=== PATIENT | female | born 1940 | race Caucasian/White ===

== ENCOUNTER 2017-02-13 14:52 | Observation (INO) | payer MEDICARE ==
[~2017-02-13] VITALS: Ht 160 cm; Wt 74.0 kg
[2017-02-13 14:54] VITALS: BP 166/92; PULSE 75; RESP 18; O2SAT 96
--- NOTE | 2017-02-13 15:07 | ED.REPORT ---
HPI-Stroke / CVA Feb 13, 2017 ED Provider: Anshul Taylor MD A 76 year old female with a history of hypertension and hyperlipidemia is brought to the ED via EMS due to a possible stroke. Per the pt's speech became suddenly slurred just after 14:10 and she developed right-sided facial and arm weakness. The symptoms lasted for seven minutes then mostly resolved, though she did have mild difficulty speaking after that point. The pt also noticed a mild headache. Nursing Notes Stated Complaint: POSSIBLE STROKE Chief Complaint: Stroke Symptoms Nursing Notes Reviewed: Yes Allergies: Coded Allergies: acetaminophen (Verified Allergy, Severe, hallucinations, 02/13/17) oxycodone (Verified Allergy, Severe, hallucinations, 02/13/17) Scheduled Cholecalciferol (Vitamin D3) (Vitamin D3) 1,000 Unit Tab.chew 2,000 UNIT PO DAILY (Reported) Estradiol (Estradiol) 0.5 Mg Tablet 0.5 MG PO DAILY (Reported) Fish Oil/Borage/Flax/Om3,6,9#1 ([place] 3-6-9 1,200 mg Softgel) 1,200 Mg Capsule 1 ,200 MG PO DAILY (Reported) Gabapentin (Gabapentin) 300 Mg Capsule 300 MG PO HS (Reported) Hydrochlorothiazide (Hydrochlorothiazide) 12.5 Mg Tablet 12.5 MG PO DAILY ( Reported) Lactobacillus Acidophilus (Probiotic) 1 Each Capsule 1 EACH PO DAILY (Reported) Lisinopril (Lisinopril) 5 Mg Tablet 5 MG PO DAILY (Reported) Lovastatin (Lovastatin) 20 Mg Tablet 20 MG PO DAILYWD (Reported) Prednisone (PredniSONE) 10 Mg Tablet 10 MG PO DAILY (Reported) Scheduled PRN Acetaminophen (Acetaminophen) 325 Mg Tablet 500 MG PO Q6H PRN PRN For Pain ( Reported) Albuterol Sulfate (Ventolin HFA Inhaler) 200 Puff/18 Gm Inhaler 2 PUFF INH q4- 6h PRN PRN whee (Reported) General Time Seen by Provider: 15:02 Chief Complaint Slurred speech Hx Obtained From: Patient, EMS Arrived By: Ambulance Time last known well 14:10 Sudden in Onset?: Yes Symptom Duration: 1 - 15 minutes Progression Since Onset: Rapidly improving Recent Healthcare: No recent hospitalization, Recent doctor visit Similar Sx Previous: No Risk Factors Risk Notes: TPA considered no administered because of NIH score of 0 NIH Stroke Scale Level of Consciousness: Alert and responsive (0) Ask Month & Age: Both questions right (0) Open/Close Eyes/Hand Purchasing And Claims Supervisor: Performs both tasks (0) Horizontal EO Movements: None (0) Visual Patricio: No visual loss (0) Facial Palsy: Normal symmetry (0) Right Arm Motor Drift (10s): No drift 10 sec (0) Left Arm Motor Drift (10s): No drift 10 sec (0) Right Leg Motor Drift (5s): No drift 5 sec (0) Left Leg Motor Drift (5s): No drift 5 sec (0) Limb Ataxia FNF/Heel-Lauren: No ataxia (0) Sensation (Arms/Legs/Face): No sensory loss (0) Language Aphasia: No aphasia, normal (0) Dysarthria: No dysarthria, normal (0) Extinction/Inattention: No exctinct/inattent (0) NIHSS Score: 0 Time NIHSS Performed: 15:20 Date NIHSS Performed: Feb 13, 2017 Past Medical History Past Medical History hypertension hyperlipidemia osteoarthritis Past Surgical History none reported Smoking History Former Smoker (distant) Social History Other Social History: Good social support, Ambulatory Status Independent Review of Systems Respiratory: Denies: Non-productive cough, Shortness of breath Cardiovascular: Denies: Chest pain GI: Denies: Abdominal pain, Vomiting Musculoskeletal: Denies: Back pain Skin: Denies Rash Neurologic: Reports: Headache, Slurred speech, Weakness (right-sided) Complete sys rev & neg: except as marked. Physical Exam Initial Vital Signs Vital Signs (First) Date Time Temp Pulse Resp B/P Pulse Ox O2 Delivery O2 Flow Rate FiO2 02/13/17 14:54 75 18 166/92 96 Room Air Initial VS: Reviewed General/Constitutional: Awake, Alert Head / Eyes: Atraumatic, Normocephalic, PERRL, EOMI Neck: Atraumatic, Supple, Full range of motion Respiratory / Chest: Atraumatic, Breath sounds NL, Breath sounds = bilat, No respiratory distress Cardiovascular: Heart rate NL, Regular rhythm, Heart sounds NL Neurologic: Oriented X3, Speech NL, No motor deficits, No sensory deficits, CN II - XII intact ENT: Atraumatic, Airway patent, Mucous membranes moist Abdomen: Atraumatic, Soft, Non-tender Upper Extremity / MS: Atraumatic, Full range of motion Lower Extremity / Pelvis / MS: Atraumatic, Full range of motion Skin: Atraumatic, Color NL, No rash, Warm, Dry Psychiatric: Affect NL, Mood NL Back: Atraumatic, Full range of motion Interpretation & Diagnostics Lab Results Interpretation Result Diagram: 02/13/17 1539 02/13/17 1539 Test 02/13/17 15:09 02/13/17 15:35 02/13/17 15:39 Urine Color Straw (YELLOW) Urine Appearance Clear (CLEAR,HAZY) Urine pH 5.0 (5.0-8.0) Urine Specific [place] 1.010 (1.003-1.035) Urine Protein Negativemg/dL (NEG,TRACE) Urine Glucose (UA) Negativemg/dL (NEGATIVE) Urine Ketones Negativemg/dL (NEGATIVE) Urine Occult Blood Negative (NEGATIVE) Urine Nitrite Negative (NEGATIVE) Urine Bilirubin Negative (NEGATIVE) Urine Urobilinogen Normalmg/dL (NORMAL) Urine Leukocyte Esterase Negative (NEGATIVE) Urine RBC 0-2/hpf (0-2) Urine WBC 0-5/hpf (0-5) Urine Epithelial Cells Moderate/hpf (NONE-MOD) Urine Crystals None seen (NONE SEEN) Urine Bacteria None/hpf (NONE-FEW) Urine Hyaline Casts None/lpf (NONE) Urine Granular Casts None seen (NONE SEEN) Urine Waxy Casts None seen (NONE SEEN) Urine Red Blood Cell Casts None seen (NONE SEEN) Urine White Blood Cell Casts None seen (NONE SEEN) Urine Mucus None seen (None Seen) Urine Trichomonas None seen (NONE SEEN) Urine Yeast None (NONE SEEN) Urinalysis Comment None Urine Culture Reflexed Not indicated Hold Urine Received (Received) Hold Purple Top Tube Received (Received) Hold Blue Top Tube Received (Received) Hold [place] Top Tube Received (Received) Hold [place] Top Tube Received (Received) White Blood Count 14.2th/mm3 (3.8-10.1) Red Blood Count 4.29mil/mm3 (3.90-5.20) Hemoglobin 13.2g/dL (12.0-15.6) Hematocrit 39.2% (35.0-46.0) Mean Corpuscular Volume 91.4fL (81-100) Mean Corpuscular Hemoglobin 30.8pg (27.0-35.0) Mean Corpuscular Hemoglobin Concent 33.7% (32.0-37.0) Red Cell Distribution Width 13.3% (12.3-15.4) Platelet Count 265bil/L (150-400) Neutrophils (%) (Auto) 85.8% (40-74) Lymphocytes (%) (Auto) 11.2% (14-46) Monocytes (%) (Auto) 2.3% (4-12) Eosinophils (%) (Auto) 0.2% (0-5) Basophils (%) (Auto) 0.2% (0-3) Prothrombin Time 11.3sec (8.1-12.5) Prothromb Time International Ratio 1.05ratio Sodium Level 137mEq/L (134-144) Potassium Level 4.6mEq/L (3.5-5.2) Chloride Level 99mEq/L (97-108) Carbon Dioxide Level 22mmol/L (18-29) Blood Urea Nitrogen 32mg/dL (8-27) Creatinine 1.18mg/dL (0.57-1.00) Estimat Glomerular Filtration Rate 64mL/min (>59) Glucose Level 110mg/dL (60-99) Calcium Level 10.0mg/dL (8.5-10.1) Total Bilirubin 0.2mg/dL (0.0-1.2) Aspartate Amino Transf (AST/SGOT) 19U/L (0-50) Alanine Aminotransferase (ALT/SGPT) 16U/L (0-32) Alkaline Phosphatase 40U/L (25-165) Total Protein 7.0g/dL (6.4-8.4) Albumin 4.0g/dL (3.4-5.0) ECG Interpretation ECG Interpretation: normal sinus rhythm with a rate of 57 probable left atrial enlargement low voltage, precordial leads Time: 16:31 Interpreted by: ED physician CT Head Interpretation IMPRESSION: Normal appearing brain parenchyma, source of altered speech is not seen. Dictated by: Timbo Pleitez M.D. on 02/13/2017 at 15:30 Approved by: Timbo Pleitez M.D. on 02/13/2017 at 15:34 Interpretation / Wet Read by: Interpret - Radiologist Re-Eval/Medical Decision Source of Hx: Old records Re-Evaluation/Progress #1: Time of Eval: 15:28 Patient Status: Condition improved Re-Evaluation/Progress Note: Pt rechecked, who is comfortable. The diagnosis and plan for admission was discussed. The pt understands and agrees with the plan. All questions are addressed at this time. Re-Evaluation/Progress #2: Time of Eval: 16:03 Patient Status: Condition improved Re-Evaluation/Progress Note: Pt rechecked and further history is obtained. The plan for admission is further discussed. Consultation : Referral / Consult Name: Myrtle Calderon MD Consulted With: Hospitalist Call Returned at: 16:41 Field Operator: Agrees with eval, Agrees with plan, Accepts admit Note: Spoke with Dr. Calderon, hospitalist, regarding pt's case. Dr. Calderon agrees with the evaluation and agrees to admit the pt. Counseled Regarding: Diagnosis, Lab results, Need for admission Patient Discharge & Departure Impression: Primary Impression: Cerebrovascular accident CVA mechanism: unspecified Qualified Code: I63.9 - Cerebral infarction, unspecified Disposition: ADMITTED TO HOSPITAL Discharge Condition All VS Reviewed: Yes Condition: Stable Referrals: Radha Carney MD (PCP) Archie Shah DO Scribe Attestation Portions of this note were transcribed by Gabriele Melton. I, Dr. Taylor personally performed the history, physical exam and medical decision-making; I reviewed and confirmed the accuracy of the information in the transcribed note. copies to: Archie Shah DO; Radha Carney MD, Kirk H MD Feb 13, 2017 15:07 GABRIELE MELTON Feb 13, 2017 15:13
[2017-02-13 15:20] VITALS: BP 160/89; PULSE 88; RESP 19; O2SAT 94
--- NOTE | 2017-02-13 15:36 | DRSVH ---
PROCEDURE: CT BRAIN TPA INDICATIONS: Stroke symptoms, possible TPA administration anticipated. COMPARISON: None. FINDINGS: Source of slurred speech is not found. The brain parenchyma appears normal for age. No h emorrhage or mass identified. IMPRESSION: Normal appearing brain parenchyma, source of altered speech is not seen. Dictated by: Timbo Pleitez M.D. on 02/13/2017 at 15:30 Approved by: Timbo Pleitez M.D. on 02/13/2017 at 15:34
[2017-02-13 16:13] LABS: BASOPHILS % (AUTO) 0.2 % (0-3); EOSINOPHILS % (AUTO) 0.2 % (0-5); MONOCYTES % (AUTO) 2.3 % (4-12); Mean Corpuscular Hemoglobin 30.8 pg (27.0-35.0); Mean Corpuscular Volume 91.4 fL (81-100); NEUTROPHILS % (AUTO) 85.8 % (40-74); Platelet Count 265 bil/L (150-400)
[2017-02-13 16:17] LABS: APPEARANCE,URINE CLEAR (CLEAR,HAZY); COLOR,URINE STRAW (YELLOW); OCCULT BLOOD,URINE NEGATIVE (NEGATIVE); UROBILINOGEN,URINE NORMAL (NORMAL)
[2017-02-13 16:18] LABS: INR 1.05 ratio
--- NOTE | 2017-02-13 16:23 | NUR ---
Evaluation completed. Please go to "Notes" then click on "Assessments and Notes" (bottom left corner of screen). Then select appropriate discipline tab on top of screen.
[2017-02-13] MEDS ORDERED: CLOB15OI2 TOPICAL (16:58)
[2017-02-13] MEDS ORDERED: GABA-502 PO (16:58)
[2017-02-13] MEDS ORDERED: ESTR0.5T PO (16:58)
[2017-02-13] MEDS ORDERED: FISH12002 PO (16:59)
[2017-02-13] MEDS ORDERED: LISI-571 PO (16:59)
[2017-02-13] MEDS ORDERED: ALBU18HF INH (16:59)
[2017-02-13] MEDS ORDERED: LOVA20TA PO (16:59)
[2017-02-13] MEDS ORDERED: PRE10 PO (16:59)
[2017-02-13] MEDS ORDERED: HYDR12.55 PO (16:59)
[2017-02-13] MEDS ORDERED: CHOL10008 PO (16:59)
[2017-02-13] MEDS ORDERED: ACET325T51 PO (17:08)
[2017-02-13] MEDS ORDERED: LACT1CAP65 PO (17:08)
[2017-02-13] MEDS ORDERED: Alum-Mag Hydrox-Simeth 30 mL Suspension PO PRN ×2 (17:25→17:35)
[2017-02-13] MEDS ORDERED: Ondansetron 2 mg/mL 2 mL Inj IVPUSH PRN ×2 (17:25→17:35)
[2017-02-13] MEDS ORDERED: Polyethylene Glycol (PEG) 17 Gm Powder PO PRN (17:35)
[2017-02-13] MEDS ORDERED: Labetalol 5 mg/mL 4 mL Inj IVPUSH PRN (17:35)
--- NOTE | 2017-02-13 17:46 | PCM.HPMED ---
Subjective Date of Service Feb 13, 2017 Primary Provider: Admitting Physician: Myrtle Calderon MD Primary Care Physician: Archie Shah DO Attending Physician: Myrtle Calderon MD Admit Status: From the Emergency Department, 23-Hour Observation, Admit to [facility], Remote Telemetry Chief Complaint: Dysarthria and right face and arm weakness History of Present Illness: 76-year-old female whose history is significant for hyperlipidemia hypertension along with interstitial fibrosis presents with an episode which started this afternoon where she had right-sided facial and arm weakness along with dysarthria lasted for about 10 minutes and then started to improve and was totally gone in about 1520 minutes. Patient has no prior history of strokes or similar symptoms. Her evaluation in the emergency room included CT of head without contrast which reveals normal-appearing brain parenchyma. The patient does not take aspirin. Patient has been on prednisone for about the past year and recently will be stable on 10 mg by mouth daily. This was ordered by her railroad signal technician Adriano Holm for interstitial fibrosis. Patient does not want to proceed with further evaluation and biopsy to confirm that diagnosis. But she does respond to prednisone. She does not require home oxygen. Review of Systems: All other review systems are reviewed and are negative except for as in history of present illness. Allergies Coded Allergies: acetaminophen (Verified Allergy, Severe, hallucinations, 02/13/17) oxycodone (Verified Allergy, Severe, hallucinations, 02/13/17) Home Medications Scheduled Cholecalciferol (Vitamin D3) (Vitamin D3) 1,000 Unit Tab.chew 2,000 UNIT PO DAILY (Reported) Estradiol (Estradiol) 0.5 Mg Tablet 0.5 MG PO DAILY (Reported) Fish Oil/Borage/Flax/Om3,6,9#1 ([place] 3-6-9 1,200 mg Softgel) 1,200 Mg Capsule 1 ,200 MG PO DAILY (Reported) Gabapentin (Gabapentin) 300 Mg Capsule 300 MG PO HS (Reported) Hydrochlorothiazide (Hydrochlorothiazide) 12.5 Mg Tablet 12.5 MG PO DAILY ( Reported) Lactobacillus Acidophilus (Probiotic) 1 Each Capsule 1 EACH PO DAILY (Reported) Lisinopril (Lisinopril) 5 Mg Tablet 5 MG PO DAILY (Reported) Lovastatin (Lovastatin) 20 Mg Tablet 20 MG PO DAILYWD (Reported) Prednisone (PredniSONE) 10 Mg Tablet 10 MG PO DAILY (Reported) Scheduled PRN Acetaminophen (Acetaminophen) 325 Mg Tablet 500 MG PO Q6H PRN PRN For Pain ( Reported) Albuterol Sulfate (Ventolin HFA Inhaler) 200 Puff/18 Gm Inhaler 2 PUFF INH q4- 6h PRN PRN whee (Reported) PMH Past Medical History Past Medical History hypertension Pulmonary interstitial fibrosis hyperlipidemia osteoarthritis Past Surgical History none reported Family History Father with history of HI age 42 Mother with a history of CVA age 80 Social History Smoking Status: Former Smoker (distant) Living Arrangement: with Family Exam Vital Signs Vital Sign - Last Date Time Temp Pulse Resp B/P Pulse Ox O2 Delivery O2 Flow Rate FiO2 02/13/17 15:20 88 19 160/89 94 Room Air Exam Constitutional: Elderly female in no acute distress Head: Normocephalic atraumatic Neck: Crest posterior further bruits Mouth: No lesions Chest: Some scant crackles at her bases bilaterally Cor: Regular rate and rhythm S1-S2 without murmur Abdomen: Soft nontender bowel sounds present Extremities: No pedal edema Psych: Mood and affect appropriate Skin: No rashes Extremities: No pedal edema Neuro: Alert and oriented 3, motor strength is intact bilaterally Lab and Diagnostics Labs Laboratory Tests 72 Hours Test 02/13/17 15:09 02/13/17 15:35 02/13/17 15:39 Urine Color Straw (YELLOW) Urine Appearance Clear (CLEAR,HAZY) Urine pH 5.0 (5.0-8.0) Urine Specific [place] 1.010 (1.003-1.035) Urine Protein Negativemg/dL (NEG,TRACE) Urine Glucose (UA) Negativemg/dL (NEGATIVE) Urine Ketones Negativemg/dL (NEGATIVE) Urine Occult Blood Negative (NEGATIVE) Urine Nitrite Negative (NEGATIVE) Urine Bilirubin Negative (NEGATIVE) Urine Urobilinogen Normalmg/dL (NORMAL) Urine Leukocyte Esterase Negative (NEGATIVE) Urine RBC 0-2/hpf (0-2) Urine WBC 0-5/hpf (0-5) Urine Epithelial Cells Moderate/hpf (NONE-MOD) Urine Crystals None seen (NONE SEEN) Urine Bacteria None/hpf (NONE-FEW) Urine Hyaline Casts None/lpf (NONE) Urine Granular Casts None seen (NONE SEEN) Urine Waxy Casts None seen (NONE SEEN) Urine Red Blood Cell Casts None seen (NONE SEEN) Urine White Blood Cell Casts None seen (NONE SEEN) Urine Mucus None seen (None Seen) Urine Trichomonas None seen (NONE SEEN) Urine Yeast None (NONE SEEN) Urinalysis Comment None Urine Culture Reflexed Not indicated Hold Urine Received (Received) Hold Purple Top Tube Received (Received) Hold Blue Top Tube Received (Received) Hold [place] Top Tube Received (Received) Hold Sandra Top Tube Received (Received) White Blood Count 14.2th/mm3 (3.8-10.1) Red Blood Count 4.29mil/mm3 (3.90-5.20) Hemoglobin 13.2g/dL (12.0-15.6) Hematocrit 39.2% (35.0-46.0) Mean Corpuscular Volume 91.4fL (81-100) Mean Corpuscular Hemoglobin 30.8pg (27.0-35.0) Mean Corpuscular Hemoglobin Concent 33.7% (32.0-37.0) Red Cell Distribution Width 13.3% (12.3-15.4) Platelet Count 265bil/L (150-400) Neutrophils (%) (Auto) 85.8% (40-74) Lymphocytes (%) (Auto) 11.2% (14-46) Monocytes (%) (Auto) 2.3% (4-12) Eosinophils (%) (Auto) 0.2% (0-5) Basophils (%) (Auto) 0.2% (0-3) Prothrombin Time 11.3sec (8.1-12.5) Prothromb Time International Ratio 1.05ratio Sodium Level 137mEq/L (134-144) Potassium Level 4.6mEq/L (3.5-5.2) Chloride Level 99mEq/L (97-108) Carbon Dioxide Level 22mmol/L (18-29) Blood Urea Nitrogen 32mg/dL (8-27) Creatinine 1.18mg/dL (0.57-1.00) Estimat Glomerular Filtration Rate 64mL/min (>59) Glucose Level 110mg/dL (60-99) Calcium Level 10.0mg/dL (8.5-10.1) Total Bilirubin 0.2mg/dL (0.0-1.2) Aspartate Amino Transf (AST/SGOT) 19U/L (0-50) Alanine Aminotransferase (ALT/SGPT) 16U/L (0-32) Alkaline Phosphatase 40U/L (25-165) Total Protein 7.0g/dL (6.4-8.4) Albumin 4.0g/dL (3.4-5.0) Result Diagram: 02/13/17 1539 02/13/17 1539 X-Rays, CTs and MRIs PROCEDURE: CT BRAIN TPA INDICATIONS: Stroke symptoms, possible TPA administration anticipated. COMPARISON: None. FINDINGS: Source of slurred speech is not found. The brain parenchyma appears normal for age. No hemorrhage or mass identified. IMPRESSION: Normal appearing brain parenchyma, source of altered speech is not seen. Dictated by: Timbo Pleitez M.D. on 02/13/2017 at 15:30 Approved by: Timbo Pleitez M.D. on 02/13/2017 at 15:34 12-lead ECG Cannot locate at the time of this dictation Assessment & Plan #TIA with dysarthria and right facial and arm weakness, acute, present on admission -Check MR brain stroke protocol -CTA of head and neck stroke protocol -Echocardiogram -Initiate ASA 324 mg by mouth daily -Placed on telemetry #Hypertension, chronic, present on admission -Continue her home medication regimen -Monitor blood pressures #Hyperlipidemia, chronic, present on admission -Continue her statin therapy -Check fasting lipid panel in a.m. #Pulmonary interstitial fibrosis, chronic, present on admission -Continue with the prednisone 10 mg by mouth daily #DVT prophylaxis -Subcutaneous Lovenox prophylactic #CODE STATUS -Patient is full code Pain Evaluation: Adequate Pain Control VTE Prophylaxis: Sub-Q Enoxaparin, SCDs Resuscitation Status: CPR: Attempt Resuscitation Time spent 60 minutes copies to: Archie Shah Cheryl A MD Feb 13, 2017 17:46
[2017-02-13 18:14] VITALS: BP 145/70; PULSE 60; RESP 16; O2SAT 94
[2017-02-13 18:20] VITALS: PULSE 62
--- NOTE | 2017-02-13 18:42 | NUR ---
Admit to [facility] Patient arrived to 3018 around 1750, vitals/ht/weight taken, oriented to room. Telemetry placed, SR 60's. paged to see about ordering a diet, diet ordered. O x 3, patient appears to have a slight delay w/ response or thought process, spouse currently at the bedside. Admit not completed, patient stated she'd like to eat dinner before admit process d/t not eating since breakfast. Plan to pass on to NOC RN.
[2017-02-14 00:09] VITALS: BP 135/73; PULSE 70; RESP 16; O2SAT 92
[2017-02-14 05:30] VITALS: BP 124/68; PULSE 64; RESP 16; O2SAT 92
[2017-02-14 06:31] VITALS: PULSE 64
--- NOTE | 2017-02-14 06:31 | NUR ---
Admit Arrived on previous shift. Admit completed with at bedside. Ambulatory in room without any noted motor deficits. Speech clear and no noted swallowing difficulties noted. Neuro checks WNL all shift. IV SL. Tele SR without CP or discomfort. RA without SOB. Denies issues with bowel or bladder. Medications taken home with . Personal belongings at bedside per patient request. Oriented to call light use and using for needs.
--- NOTE | 2017-02-14 09:05 | DRSVH ---
PROCEDURE: CT ANGIO HEAD AND NECK (P) INDICATIONS: tia TECHNIQUE: Pre-contrast 4.5 mm thick sections acquired from the foramen magnum to the vertex. After the adminis tration of intravenous contrast, 1 mm thick sections acquired from the aortic arch through the [place] of [place]. Post-contrast 4.5 mm thick sections then re-acquired from the foramen magnum to the vert ex. 3-dimensional [id number] (MIP) and/or volume rendering reformats were acquired of the central intracranial vasculature and neck separately. For radiation dose reduction, the foll owing was used: automated exposure control, adjustment of mA and/or kV according to patient size. COMPARISON: [facility], CT, CT BRAIN TPA, 02/13/2017, 15:20. FINDINGS: Image quality: Good. BRAIN: CSF spaces: Ventricles are normal in size and shape. Basal cisterns are patent. No extra-axial flu id collections. Brain: No midline shift. No intracranial bleeds or masses. [place]-white matter interface appears int act. Minimal atrophic change as CT scan of 02/13/17. Skull and face: Calvarium and facial bones appear intact, without suspicious lesions. Orbits appear normal. Sinuses: Sinuses and mastoids are clear. HEAD CT ANGIOGRAPHY: Anterior circulation: Intracranial internal carotid arteries are not reduced greater than 50% at any portion in size and flow. The flow within the paired anterior cerebral arteries is normal and symme tric. The flow within the middle cerebral arteries is normal and symmetric. The anterior communicat ing artery is seen. No aneurysms are seen. Posterior circulation: Visualized portions of the vertebral arteries demonstrate normal caliber, and join to form a normal appearing basilar artery. Flow within the posterior cerebral arteries is norm al and symmetric. No aneurysms are seen. NECK CT ANGIOGRAPHY: Carotid system: The great vessels demonstrate a conventional anatomy, 3 vessels arising from the arc h. The origins of the common carotid arteries appear patent. There is minimal plaque in present. The common carotid arteries demonstrate normal caliber and courses. The bifurcation regions are both wi khang patent. There is less than 50% diameter stenosis of the internal carotid artery. The internal c arotid arteries demonstrate normal calibers and courses. Posterior circulation: The origins of the vertebral arteries both appear patent. The left is widely patent the right suspected to have greater than 50% diameter stenosis. The more superior extracranial portions of both vertebral arteries also demonstrate normal courses and calibers. They join to form a normal appearing basilar artery. Soft tissues: Visualized neck soft tissues demonstrate no suspicious abnormalities. Bones: No suspicious bony lesions. Visualized cervical spine appears normally aligned. IMPRESSION: 1. No change in the CT scan intracranially is seen. No evidence for acute infarct or blood. Mild atro phic change is present. 2. No intracranial vascular abnormality is seen and certainly no stenosis greater than 50% is present . There is atherosclerotic plaquing at the base of the skull of both internal Carotid artery segment on the right approaches a 50% narrowing. 3. The arch and great vessels show atherosclerotic plaquing. The only stenosis thought to be greater than 50% is at the origin of the right vertebral artery. The left is widely patent and a slightly gre ater in size vessel in the right vertebral. Dictated by: Freedom German M.D. on 02/14/2017 at 8:51 Approved by: Freedom German M.D. on 02/14/2017 at 9:02
[2017-02-14 10:16] VITALS: BP 116/70; PULSE 53; RESP 18; O2SAT 93
[2017-02-14 10:49] VITALS: PULSE 61
[2017-02-14 14:19] VITALS: BP 124/70; PULSE 61; RESP 18; O2SAT 94
--- NOTE | 2017-02-14 14:27 | NUR ---
Awaiting MRI results to determine need for further cognitive-communication evaluation. WAREHOUSE SHIPPING SUPERVISOR spoke with RN, who reported pt. is at baseline. WAREHOUSE SHIPPING SUPERVISOR to follow as appropriate.
--- NOTE | 2017-02-14 15:03 | DRSVH ---
[facility] [address] [place] [address] Echocardiogram Report Name: BONNIE ESCOBEDO JStudy Date : 02/14/2017 Height: 63 in Hospital Exam Location: [facility] Weight: 163 lb Gender: Female BSA: 1.8 m2 : 1940 Age: 76 yrs BP: 124/68 mmHg Reason For Study: TIA Ordering Physician: HOSPITALIST [facility] Performed By: Carlotta Flores Referring Physician[facility] Interpretation Summary The left ventricle is normal in size. The ejection fraction is estimated to be 55-60%. There is no LV thrombus. The right ventricle is normal in size and function. There is moderate tricuspid regurgitation. Compared to the prior echo exam, there has been an increase in TR severity. The right ventricular systolic pressure is estimated at 30 mmHg assuming a right atrial pressure of 3 mm Hg. Procedure: A two-dimensional transthoracic echocardiogram with color flow and Doppler was performed. The study quality was technically adequate. Comparison is made with the echocardiogram of 03/27/2016. The patient was in normal sinus rhythm during the exam. Left Ventricle: The left ventricle is normal in size. Left ventricular wall thickness is mild-moderately increased. Proximal septal thickening is noted. There is no echo evidence for significant left ventricular outflow tract obstruction. There is no thrombus. The ejection fraction is estimated to be 55-60%. There are no focal wall motion abnormalities. Assessment of diastolic parameters indicates a relaxation abnormality of the left ventricle, consistent with normal filling pressures. Right Ventricle: The right ventricle is normal in size and function. Atria: The left atrium is mildly dilated. The left atrium has remained unchanged in size since the prior echo exam. The right atrium is mildly dilated. The right atrium has remained unchanged in size since the prior echo exam. The interatrial septum is intact with no evidence for an atrial septal defect. Previously noted patent foramen ovale was not visualized on today's echocardiogram. Mitral Valve: The mitral valve leaflets appear mildly thickened, but open well. There is mild mitral annular calcification. There is mild mitral regurgitation. Compared to the prior echo study, there has been a decrease in the severity of mitral regurgitation. Aortic Valve: The aortic valve is trileaflet. The aortic valve opens well. The aortic valve is slightly calcified. There is no aortic valve stenosis. No aortic regurgitation is present. Tricuspid Valve: The tricuspid valve leaflets are thickened and/or calcified, but open well. The tricuspid valve is not well visualized. There is moderate tricuspid regurgitation. The right ventricular systolic pressure is estimated at 30 mmHg assuming a right atrial pressure of 3 mm Hg. Compared to the prior echo exam, there has been an increase in TR severity. Compared to the prior echo exam, there has been no change in the severity of pulmonary hypertension. Pulmonic Valve: The pulmonic valve is not well seen, but is grossly normal. There is trace pulmonic regurgitation. Great Vessels: The aortic root is normal size. The ascending aorta is normal in size. The IVC is of normal diameter and collapses greater than 50% with a sniff. This suggests a low right atrial pressure of 3 mm Hg. Pericardium/ Pleura There is no pericardial effusion. There is an anterior echo-free space consistent with a fat pad. There has been no significant change since the previous study. MMode/2D Measurements & Calculations LVIDd: 4.3 cm RA long axis LVOT diam LVIDs: 3.1 cm LA A2 area: 18.6 cm FS: 26.2 % LA A4 area: 19.6 cm RA area Ao root diam IVSd: 1.4 cm LA length (vol): 4.4 cm LVPWd: 1.1 cm LA vol: 70.2 ml : 20.3 cm asc Aorta LA vol index RA vol: 65.7 mlDiam: 3.6 cm RA : 37.0 mm2 IVC diam: 1.4 cm LV padilla. diameter/BSA LV sys. diameter/BSA TAPSE: 2.4 cm (cm/m^2): 2.4 (cm/m^2): 1.8 Doppler Measurements & Calculations Ao V2 max MV E max shashi MV E/A: 0.72 TR max shashi : 113.0 cm/sec : 74.6 cm/sec Med Peak E' Shashi : 258.0 cm/sec Ao max PG MV A max shashi TR max P.6 mmHg : 5.1 mmHg : 103.4 cm/sec E/E' med: 12.4 Ao mean PG Lat Peak E' Shashi LVOT Max Shashi E/E' lat: 11.0 : 79.1 cm/sec E/e' average ANNIKA(I,D): 2.4 cm sev ratio MV dec time Ao V2 mean LV V1 max PG ANNIKA indexed to BSA : 0.20 sec : 81.4 cm/sec (cm^2/m^2): 1.3 Ao V2 VTI: 27.6 cmLV V1 VTI ANNIKA(V,D): 2.4 cm2 : 19.5 cm Reading Physician:OBIE
--- NOTE | 2017-02-14 16:15 | PCM.DIMED ---
Discharge Instructions Date of Service Feb 14, 2017 Dates of Hospitalization Feb 13, 2017 at 17:33 Discharge Diagnosis Discharge Diagnosis TIA with dysarthria ,right facial droop Diet Discharge Diet: Heart Healthy Activity Discharge Activity: No restrictions Call your provider Call your provider for: Fever or Chills, Shortness of breath, Bleeding, Chest pain, Vomitting, Excessive diarrhea, Weakness (unilateral) Patient Instructions Follow-up Provider: Archie Shah DO Follow-up with PCP in: Other (5-7 days,sooner if problems.) Myrtle Calderon MD Feb 14, 2017 16:15
[2017-02-14] MEDS ORDERED: ASPI-973 PO (16:17)
--- NOTE | 2017-02-14 16:28 | PCM.DC.MED ---
Discharge Summary Date of Service Feb 14, 2017 Dates of Hospitalization Date of Hospital Admission Feb 13, 2017 at 17:33 Date of Discharge: Feb 14, 2017 Providers: Admitting Physician: Myrtle Calderon MD Primary Care Physician: Archie Shah DO Attending Physician: Myrtle Calderon MD Diagnosis at Time of Discharge Diagnosis at Time of Discharge TIA with dysarthria ,right facial droop Procedures XRay, CTs & MRIs PROCEDURE: CT BRAIN TPA INDICATIONS: Stroke symptoms, possible TPA administration anticipated. COMPARISON: None. FINDINGS: Source of slurred speech is not found. The brain parenchyma appears normal for age. No hemorrhage or mass identified. IMPRESSION: Normal appearing brain parenchyma, source of altered speech is not seen. Dictated by: Timbo Pleitez M.D. on 02/13/2017 at 15:30 Approved by: Timbo Pleitez M.D. on 02/13/2017 at 15:34 PROCEDURE: CT ANGIO HEAD AND NECK (P) INDICATIONS: tia TECHNIQUE: Pre-contrast 4.5 mm thick sections acquired from the foramen magnum to the vertex. After the administration of intravenous contrast, 1 mm thick sections acquired from the aortic arch through the [place]. Post-contrast 4.5 mm thick sections then re-acquired from the foramen magnum to the vertex. 3- dimensional ypjpkko-sgbjhxxgn-wyuxqrxfvc (MIP) and/or volume rendering reformats were acquired of the central intracranial vasculature and neck separately. For radiation dose reduction, the following was used: automated exposure control, adjustment of mA and/or kV according to patient size. COMPARISON: [facility], CT, CT BRAIN TPA, 02/13/2017, 15:20. FINDINGS: Image quality: Good. BRAIN: CSF spaces: Ventricles are normal in size and shape. Basal cisterns are patent. No extra-axial fluid collections. Brain: No midline shift. No intracranial bleeds or masses. Argueta-white matter interface appears intact. Minimal atrophic change as CT scan of 02/13/17. Skull and face: Calvarium and facial bones appear intact, without suspicious lesions. Orbits appear normal. Sinuses: Sinuses and mastoids are clear. HEAD CT ANGIOGRAPHY: Anterior circulation: Intracranial internal carotid arteries are not reduced greater than 50% at any portion in size and flow. The flow within the paired anterior cerebral arteries is normal and symmetric. The flow within the middle cerebral arteries is normal and symmetric. The anterior communicating artery is seen. No aneurysms are seen. Posterior circulation: Visualized portions of the vertebral arteries demonstrate normal caliber, and join to form a normal appearing basilar artery. Flow within the posterior cerebral arteries is normal and symmetric. No aneurysms are seen. NECK CT ANGIOGRAPHY: Carotid system: The great vessels demonstrate a conventional anatomy, 3 vessels arising from the arch. The origins of the common carotid arteries appear patent. There is minimal plaque in present. The common carotid arteries demonstrate normal caliber and courses. The bifurcation regions are both widely patent. There is less than 50% diameter stenosis of the internal carotid artery. The internal carotid arteries demonstrate normal calibers and courses. Posterior circulation: The origins of the vertebral arteries both appear patent. The left is widely patent the right suspected to have greater than 50% diameter stenosis. The more superior extracranial portions of both vertebral arteries also demonstrate normal courses and calibers. They join to form a normal appearing basilar artery. Soft tissues: Visualized neck soft tissues demonstrate no suspicious abnormalities. Bones: No suspicious bony lesions. Visualized cervical spine appears normally aligned. IMPRESSION: 1. No change in the CT scan intracranially is seen. No evidence for acute infarct or blood. Mild atrophic change is present. 2. No intracranial vascular abnormality is seen and certainly no stenosis greater than 50% is present. There is atherosclerotic plaquing at the base of the skull of both internal Carotid artery segment on the right approaches a 50% narrowing. 3. The arch and great vessels show atherosclerotic plaquing. The only stenosis thought to be greater than 50% is at the origin of the right vertebral artery. The left is widely patent and a slightly greater in size vessel in the right vertebral. Dictated by: Freedom German M.D. on 02/14/2017 at 8:51 Approved by: Freedom German M.D. on 02/14/2017 at 9:02 MRI of brain without contrast reveals small right posterior frontal ischemic subacute infarct. No mass effect or blood associated. This location does not fit with the clinical symptoms of dysarthria and right facial paralysis. ECG 12 Lead NSR Cardiac Echo Impression Echocardiogram Report Name: BONNIE ESCOBEDO JStudy Date : 02/14/2017 Height: 63 in Hospital Exam Location: [facility] Weight: 163 lb Gender: Female BSA: 1.8 m2 : 1940 Age: 76 yrs BP: 124/68 mmHg Reason For Study: TIA Ordering Physician: HOSPITALIST [facility] Performed By: Carlotta Flores Referring Physician: Baldomero Foy Interpretation Summary The left ventricle is normal in size. The ejection fraction is estimated to be 55-60%. There is no LV thrombus. The right ventricle is normal in size and function. There is moderate tricuspid regurgitation. Compared to the prior echo exam, there has been an increase in TR severity. The right ventricular systolic pressure is estimated at 30 mmHg assuming a right atrial pressure of 3 mm Hg. Brief History 76-year-old female whose history is significant for hyperlipidemia hypertension along with interstitial fibrosis presents with an episode which started this afternoon where she had right-sided facial and arm weakness along with dysarthria lasted for about 10 minutes and then started to improve and was totally gone in about 1520 minutes. Patient has no prior history of strokes or similar symptoms. Her evaluation in the emergency room included CT of head without contrast which reveals normal-appearing brain parenchyma. The patient does not take aspirin. Patient has been on prednisone for about the past year and recently will be stable on 10 mg by mouth daily. This was ordered by her fan mail editor Adriano Holm for interstitial fibrosis. Patient does not want to proceed with further evaluation and biopsy to confirm that diagnosis. But she does respond to prednisone. She does not require home oxygen. Hospital Course #TIA with dysarthria and right facial and arm weakness, acute, present on admission -Check MR brain stroke protocol as reported above -CTA of head and neck stroke protocol as reported above -Echocardiogram as reported above -Initiate ASA 324 mg by mouth daily and will be discharged on ASA 81 mg by mouth daily -Placed on telemetry with no abnormalities seen #Hypertension, chronic, present on admission -Continue her home medication regimen -Monitor blood pressures #Hyperlipidemia, chronic, present on admission -Continue her statin therapy -Check fasting lipid panel in a.m. #Pulmonary interstitial fibrosis, chronic, present on admission -Continue with the prednisone 10 mg by mouth daily #DVT prophylaxis -Subcutaneous Lovenox prophylactic #CODE STATUS -Patient is full code Exam Vital Signs (Last) Date Time Temp Pulse Resp B/P Pulse Ox O2 Delivery O2 Flow Rate FiO2 02/14/17 14:19 36.7 61 18 124/70 94 Room Air Exam Constitutional: Elderly female in no acute distress Head: Normocephalic atraumatic Chest: Clear to auscultation Cor: Regular rate and rhythm S1-S2 without murmur Abdomen: Soft nontender bowel sounds present Extremities: No pedal edema Psych: Mood and affect are appropriate Skin: No rashes Neuro: Alert and oriented 3, motor strength is intact bilaterally no other focal defects noted Test 02/13/17 15:09 02/13/17 15:35 02/13/17 15:39 02/14/17 06:05 Urine Color Straw (YELLOW) Urine Appearance Clear (CLEAR,HAZY) Urine pH 5.0 (5.0-8.0) Urine Specific [place] 1.010 (1.003-1.035) Urine Protein Negativemg/dL (NEG,TRACE) Urine Glucose (UA) Negativemg/dL (NEGATIVE) Urine Ketones Negativemg/dL (NEGATIVE) Urine Occult Blood Negative (NEGATIVE) Urine Nitrite Negative (NEGATIVE) Urine Bilirubin Negative (NEGATIVE) Urine Urobilinogen Normalmg/dL (NORMAL) Urine Leukocyte Esterase Negative (NEGATIVE) Urine RBC 0-2/hpf (0-2) Urine WBC 0-5/hpf (0-5) Urine Epithelial Cells Moderate/hpf (NONE-MOD) Urine Crystals None seen (NONE SEEN) Urine Bacteria None/hpf (NONE-FEW) Urine Hyaline Casts None/lpf (NONE) Urine Granular Casts None seen (NONE SEEN) Urine Waxy Casts None seen (NONE SEEN) Urine Red Blood Cell Casts None seen (NONE SEEN) Urine White Blood Cell Casts None seen (NONE SEEN) Urine Mucus None seen (None Seen) Urine Trichomonas None seen (NONE SEEN) Urine Yeast None (NONE SEEN) Urinalysis Comment None Urine Culture Reflexed Not indicated Hold Urine Received (Received) Hold Purple Top Tube Received (Received) Hold Blue Top Tube Received (Received) Hold [place] Top Tube Received (Received) Hold Sandra Top Tube Received (Received) White Blood Count 14.2th/mm3 (3.8-10.1) Red Blood Count 4.29mil/mm3 (3.90-5.20) Hemoglobin 13.2g/dL (12.0-15.6) Hematocrit 39.2% (35.0-46.0) Mean Corpuscular Volume 91.4fL (81-100) Mean Corpuscular Hemoglobin 30.8pg (27.0-35.0) Mean Corpuscular Hemoglobin Concent 33.7% (32.0-37.0) Red Cell Distribution Width 13.3% (12.3-15.4) Platelet Count 265bil/L (150-400) Neutrophils (%) (Auto) 85.8% (40-74) Lymphocytes (%) (Auto) 11.2% (14-46) Monocytes (%) (Auto) 2.3% (4-12) Eosinophils (%) (Auto) 0.2% (0-5) Basophils (%) (Auto) 0.2% (0-3) Prothrombin Time 11.3sec (8.1-12.5) Prothromb Time International Ratio 1.05ratio Sodium Level 137mEq/L (134-144) Potassium Level 4.6mEq/L (3.5-5.2) Chloride Level 99mEq/L (97-108) Carbon Dioxide Level 22mmol/L (18-29) Blood Urea Nitrogen 32mg/dL (8-27) Creatinine 1.18mg/dL (0.57-1.00) Estimat Glomerular Filtration Rate 64mL/min (>59) Glucose Level 110mg/dL (60-99) Calcium Level 10.0mg/dL (8.5-10.1) Total Bilirubin 0.2mg/dL (0.0-1.2) Aspartate Amino Transf (AST/SGOT) 19U/L (0-50) Alanine Aminotransferase (ALT/SGPT) 16U/L (0-32) Alkaline Phosphatase 40U/L (25-165) Total Protein 7.0g/dL (6.4-8.4) Albumin 4.0g/dL (3.4-5.0) Triglycerides Level 119mg/dL (0-149) Cholesterol Level 174mg/dL (100-199) LDL Cholesterol, Calculated 68.200mg/dL (0-99) VLDL Cholesterol 23.800mg/dL HDL Cholesterol 82mg/dL (>39) Cholesterol/HDL Ratio 2.12 (0.0-4.4) Discharge Medications Discharge Medications Aspirin (Aspirin) 81 Mg Tablet 81 MG PO DAILY Prescribed by: MYRTLE CALDERON MD Cholecalciferol (Vitamin D3) (Vitamin D3) 1,000 Unit Tab.chew 2,000 UNIT PO DAILY (Reported) Estradiol (Estradiol) 0.5 Mg Tablet 0.5 MG PO DAILY (Reported) Fish Oil/Borage/Flax/Om3,6,9#1 ([place]ard 3-6-9 1,200 mg Softgel) 1,200 Mg Capsule 1 ,200 MG PO DAILY (Reported) Gabapentin (Gabapentin) 300 Mg Capsule 300 MG PO HS (Reported) Hydrochlorothiazide (Hydrochlorothiazide) 12.5 Mg Tablet 12.5 MG PO DAILY ( Reported) Lactobacillus Acidophilus (Probiotic) 1 Each Capsule 1 EACH PO DAILY (Reported) Lisinopril (Lisinopril) 5 Mg Tablet 5 MG PO DAILY (Reported) Lovastatin (Lovastatin) 20 Mg Tablet 20 MG PO DAILYWD (Reported) Prednisone (PredniSONE) 10 Mg Tablet 10 MG PO DAILY (Reported) As needed Acetaminophen (Acetaminophen) 325 Mg Tablet 500 MG PO Q6H PRN PRN For Pain ( Reported) Albuterol Sulfate (Ventolin HFA Inhaler) 200 Puff/18 Gm Inhaler 2 PUFF INH q4- 6h PRN PRN whee (Reported) Followup Plan Disposition: Home Discharge Diet: Heart Healthy Discharge Activity: No restrictions Follow-up Provider: Archie Shah DO Follow-up with PCP in: Other (5-7 days,sooner if problems.) Time spent Greater than 30 minutes was spent in preparation of discharge with greater than 50% of that time dedicated to patient counseling and coordination of care. copies to: Archie Shah Cheryl A MD Feb 14, 2017 16:28
--- NOTE | 2017-02-14 16:47 | NUR ---
Discharge Note Patient discharged, spouse here to transport home. IV catheter x 1 & telemetry box removed. All items gathered, nothing left behind. Discharge paperwork/instructions discussed & understood. No prescription given, patient to purchase ASA 81mg OTC. Mentation at baseline, vitals stable, no c/o pain upon discharge. Patient & spouse walked out by [employer].
--- NOTE | 2017-02-24 07:44 | DRSVH ---
PROCEDURE: MRI BRAIN WITHOUT CONTRAST ([id number]) INDICATIONS: transient aphasia and right face paralysis TECHNIQUE: Non-contrast axial T1 spin echo, axial T2 fast spin echo, sagittal and axial FLAIR, coronal T2 fast s pin echo, axial gradient echo, axial diffusion and ADC through the brain. COMPARISON: None. FINDINGS: Image quality: Excellent. CSF spaces: Ventricles appear symmetric in size and shape. Basal cisterns are patent. No extra-axi al fluid collections. Brain: No intracranial bleeds or mass effects. There is a small subacute ischemic infarct in the pos terior right frontal lobe less than 1 cm in size. There is a corresponding area of decreased signal o n the ADC map. There is cerebral volume loss for age. There are periventricular and deep white matte r chronic small vessel ischemic changes. Brainstem appears normal. Diffusion-weighted images show n o acute ischemic insults. No chronic ischemic insults. Normal intravascular flow voids are present. Skull and face: Calvarial bone marrow is normal in signal. Orbits are normal. Sinuses: Sinuses and mastoids are clear. IMPRESSION: There is a small right posterior frontal ischemic subacute infarct. No mass effect or blo od associated. This location does not fit with the clinical symptoms of aphasia and right face paraly sis. Dictated by: Freedom German M.D. on 02/14/2017 at 10:30 Approved by: Freedom German M.D. on 02/14/2017 at 10:34
== END 2017-02-14 16:45 | disposition home or self-care (01) ==
LOC: SED 14:52 → MPC 17:33
PROVIDERS: ADMIT Specialist; ATTEND Specialist
DX: I69.922 Dysarthria following unspecified cerebrovascular disease (principal); I69.992 Facial weakness following unspecified cerebrovascular disease; I10 Essential (primary) hypertension; E78.5 Hyperlipidemia, unspecified; J84.10 Pulmonary fibrosis, unspecified; M19.90 Unspecified osteoarthritis, unspecified site; Z87.891 Personal history of nicotine dependence; Z79.82 Long term (current) use of aspirin; Z79.51 Long term (current) use of inhaled steroids; Z79.52 Long term (current) use of systemic steroids
CPT/HCPCS: 36415; 70450; 70496; 70498; 70551; 80053; 80061; 81000; 85025; 85610; 92610; 93005; 99285; C8929; G0378; G8996; G8997; J1650; Q9967